=== PATIENT | male | born 1980 | race Caucasian/White ===

== ENCOUNTER 2022-07-07 11:07 | Outpatient (CLI) | payer OTHER, SELFPAY ==
--- NOTE | 2022-07-07 09:15 | DI.RAD_ITS ---
Exam(s) XR KNEE LT 3V AP,LAT,SHREE EXAM: XR KNEE LT 3V AP,LAT,SHREE CLINICAL HISTORY: left knee pain. TECHNIQUE: 2D digital imaging was performed of the left knee. Three images were obtained. Merchant ,AP and lateral views were obtained. COMPARISON: No exams were available for comparison FINDINGS: BONES: No acute fracture is present. No bony destructive lesion is seen. There is a tiny well cortic ated nonspecific ossified density superior to the medial tibial spine which appears old. JOINTS: The knee is normally aligned. No joint effusion is seen. SOFT TISSUE: Normal. IMPRESSION: No acute abnormality. DATA REPOSITORY: RADIATION DOSE DELIVERED:
== END 2022-07-07 11:08 | disposition home or self-care (01) ==
LOC: DIORS 11:08
PROVIDERS: Visit Provider Student in an Organized Health Care Education/Training Program
DX: M25.562 Pain in left knee (principal); M23.92 Unspecified internal derangement of left knee
CPT/HCPCS: 73562

== ENCOUNTER 2022-08-03 02:16 | Outpatient (CLI) | payer OTHER, SELFPAY ==
--- NOTE | 2022-08-03 07:45 | DI.MRI_ITS ---
Exam(s) MR LOWER JOINT LT WO EXAM: MR LOWER JOINT LT WO CLINICAL HISTORY: ? MENISCAL TEAR,internal derangement lt knee,m23.92 TECHNIQUE: Multiplanar multisequence MRI of the knee was performed. COMPARISON: CR XR KNEE LT 3V AP,LAT,SHREE from 07/07/2022 FINDINGS: EFFUSION: There is a moderate size knee joint effusion no Caraballo cyst. MARROW:There is no evidence of fracture, bone contusion, nor osteochondral defects.. There are no si gnificant osseous lesions. PATELLOFEMORAL COMPARTMENT: The quadriceps tendon is intact. The patellar ligament is intact. There is no significant thinning of the retropatellar cartilage. No evidence of fissure nor signific ant chondral defect. No osteochondral defect at this level.There is no intraosseous signal to sugges t recent patellar dislocation. There are no patellar retinacular tears. CRUCIATE LIGAMENTS: The anterior cruciate ligament is intact.The posterior cruciate ligament is intac t. MEDIAL COMPARTMENT/MEDIAL MENISCUS: There are no tears of the medial meniscus evident.. There are no chondral defects, osteochondral defects, subarticular marrow edema, nor osteophytes evid ent. MEDIAL COLLATERAL LIGAMENT: Intact LATERAL COMPARTMENT/LATERAL MENISCUS: There is some mild increased signal anterior to and in the ante rior horn but no true meniscal tear evident.There are no chondral defects, osteochondral defects, sub articular marrow edema, nor osteophytes evident. ILIOTIBIAL BAND: Intact LATERAL COLLATERAL LIGAMENT COMPLEX: The fibular collateral ligament is intact. The biceps femoris t endon is intact.Popliteus muscle and tendon are intact. IMPRESSION: 1. There is a moderate size joint effusion. However, and there is no obvious meniscal tear, cruciate ligament tear, nor collateral ligament tears. 2. No obvious loose intra-articular bodies. 3. No significant degenerative changes. No osteochondral defects. No subarticular edema and no dege nerative subarticular cysts. DATA REPOSITORY:
== END 2022-08-03 02:36 ==
LOC: DI 02:17
PROVIDERS: Visit Provider Student in an Organized Health Care Education/Training Program
DX: M25.462 Effusion, left knee
CPT/HCPCS: 73721

== ENCOUNTER 2022-12-16 11:11 | Day surgery (SDC) | payer OTHER, SELFPAY ==
[2022-12-16] VITALS (10 sets, daily range): BP systolic 118–148; BP diastolic 70–86; PULSE 61–80; RESP 13–20; TEMP 36.4–36.8; O2SAT 93–97; BMI 36.5
--- NOTE | 2022-12-16 11:51 | W.PM.DSUDISC ---
Date of service: 12/16/22 Time of Service: 14:00 Discharge Plan Disposition Patient Disposition: Home Discharge Details Attending Provider: Milo Sauceda Primary Care Provider: Lei Alvarado Home Meds and New Rx's Prescriptions: New naproxen 250 mg tablet 250 - 500 mg PO BID PRNQty: 40 0RF Rx Instructions: take with a meal aspirin 81 mg tablet,delayed release (DR/EC) 81 mg PO DAILY 14 Days Qty: 14 0RF Continued buprenorphine-naloxone 8-2 mg tablet, sublingual 2 tab sublingual DAILY acetaminophen [Tylenol] 325 mg capsule 325 mg PO ONCE PRN docusate sodium [Colace] 100 mg capsule 100 mg PO DAILY tamsulosin [Flomax] 0.4 mg Capsule 0.4 mg PO HS Discharge Instructions Additional Instructions: Surgery: Left knee arthroscopy with partial lateral meniscectomy and extensive synovectomy Activity: Weightbearing as tolerated. Advance range of motion as comfort allows. Elevate to minimize swelling and discomfort. Wiggle toes and perform ankle pumps to improve circulation and reduce risk of blood clot. Recommend avoiding sports, pivoting, and squatting for 6-8 weeks. A physical therapy prescription will be provided at follow-up. Prescriptions: Aspirin 81 mg take 1 daily to prevent a blood clot for 14 days Naproxen 250 mg take 1-2 every 12 hours with a meal as needed for moderate pain You may use [id number] Tylenol (acetaminophen) as needed for mild pain. These pain medications may be taken all at once or in different combinations as needed. Also, recommend Colace (docusate) as a stool softener as surgery and pain medicine cause constipation. You may try [id number] diphenhydramine (Benadryl) 25-50 mg nightly as a sleep aid Dressings: Leave dressing in place for 3 days. May then remove and leave open to air or cover incisions with Band-Aids. Leave the sticky Steri-Strips in place until they fall off or remove them after you shower. May shower after 5 days. Follow-up: 10-[address] Sauceda You may take off the leg compression stockings this evening at home. You may also leave them on a few days longer if you have a history of leg swelling or edema. Let us know right away if you develop any redness, drainage, fevers, chest pain, or trouble breathing. Do not drink alcohol or drive for at least 24 hours after anesthesia. Please call the office during business hours with any questions or concerns. Discharge Orders Discharge Orders: Discharge Order (Routine); Ordered 12/16/22 Ordered By: Milo Sauceda DS: Diagnosis Discharge Diagnosis (1) Plica syndrome, left knee: Status: Acute (2) Tear of lateral meniscus of left knee: Status: Acute
--- NOTE | 2022-12-16 11:52 | ROE_ITS ---
Date of service: 12/16/22 Time of Service: 13:00 Operative Note Operative Note DATE OF PROCEDURE: 12/16/22 PRE-OP DIAGNOSIS: Left knee 1. Plica and suprapatellar adhesions POST-OP DIAGNOSIS: same Left knee 1. Lateral meniscus tear 2. Synovitis including plical band and suprapatellar adhesions PROCEDURE: Left knee 1. Partial lateral meniscectomy, CPT #00812 2. Greater than 2 compartment synovectomy, CPT #75673: Including resection of suprapatellar adhesions, excision of medial gutter plica, debridement of medial, intercondylar, and lateral synovitis. SURGEON: Milo Sauceda GUEST SPECIALIST: None None ANESTHESIA TYPE: Local By Surgeon and General LMA/ETT Refer to Anesthesia Record ESTIMATED BLOOD LOSS: 5 PATHOLOGY: none sent TOURNIQUET TIME: 0 Patient was transported to: PACU Patient's condition: stable Indications: Please see complete medical record for details. Findings: Exam under anesthesia: Full range of motion, no instability Arthroscopic findings: Large and thickened suprapatellar adhesions, moderately large medial gutter plical band, central trochlear high-grade but small maybe 2 x 6 mm cartilage focal defect, mild undersurface patellar chondromalacia, intact medial compartment, intact ACL, mild to moderate lateral femoral condyle chondromalacia at the area corresponding to the lateral meniscus tear and more centrally to posteriorly. Displaced engaging anterior horn parrot-beak lateral meniscus tear. Remainder of lateral meniscus body posterior horn and root intact. Procedure Description: In the operating room, general anesthesia was induced. The patient was positioned supine on the operating room table. All bony prominences were well- padded. Preoperative antibiotics were administered. The knee was prepped and draped in the usual sterile fashion. The correct patient, procedure, and side of the procedure were all verified prior to incision. Exam under anesthesia was performed. 10 cc of 0.25% bupivacaine containing epinephrine was infiltrated about the planned anteromedial and anterolateral knee arthroscopy portals. The portals were established and a complete diagnostic arthroscopy was performed with relevant findings detailed above. The meniscal biters and mechanical shaver were used to resect suprapatellar adhesions and recreate the normal suprapatellar space. They were then used to remove the medial gutter plical band. Mechanical shaver was used to remove abundant inflamed synovium from the anterior medial, anterior lateral, and intercondylar areas. The anterior horn of the lateral meniscus had an obvious tear. Using a combination of hand instruments including meniscal biters and a power shaver and working through the anteromedial and anterolateral portals the meniscus was debrided of all torn tissue to a stable margin. Care was taken to preserve as much meniscus tissue was possible. The meniscal remnant was probed and found to have a stable margin, stable root, and no other tears Under direct arthroscopic visualization an 18-gauge needle was passed into the knee from superolateral into the suprapatellar pouch. The knee was copiously irrigated with arthroscopic fluid until there was a clear effluent before being drained of all fluid. The anteromedial and anterolateral portals were closed in 3-0 Monocryl in a buried interrupted fashion. 20 cc of 0.25% bupivacaine with epinephrine containing 4 mg of morphine was infiltrated into the knee through the previously placed needle. Mastisol, Steri-Strips, and 4 x 4 gauze were applied over the incisions followed by sterile soft roll. The knee was then wrapped gently with an ROSA comressive bandage. The patient awoke from anesthesia without complication and was transferred to the recovery room in a stable condition.
--- NOTE | 2022-12-16 11:58 | W.ANESPRE ---
General Info Date of Service Date Performed: 12/16/22 Height: 5 ft 11 in Weight: 118.841 kg Body Mass Index (BMI): 36.5 Surgical Procedure: Operation Date: 12/16/22 13:10 Proposed Procedure Side Surgeon p Knee Arthroscopy Left Milo Sauceda MD Meds Allergies and Home Medications Allergies Allergy/AdvReac Type Severity Reaction Status Date / Time No Known Allergies Allergy Verified 12/16/22 11:17 Home Medication Medication Instructions Recorded acetaminophen 325 mg capsule 325 mg PO ONCE PRN 07/07/22 (Tylenol) buprenorphine 8 mg-naloxone 2 mg 2 tab sublingual DAILY 07/07/22 sublingual tablet docusate sodium 100 mg capsule 100 mg PO DAILY 07/07/22 (Colace) tamsulosin 0.4 mg capsule (Flomax) 0.4 mg PO HS 12/15/22 naproxen 250 mg tablet 250 - 500 mg (1 - 2 x 250 mg) PO 12/16/22 BID PRN #40 tabs Current Visit Medications: Current Medications Generic Name Dose Route Start Last Admin Trade Name Freq PRN Reason Stop Dose Admin Ringer's Solution 1,000 mls @ 30 mls/hr 12/16/22 06:00 IV 01/14/23 23:59 INFUSION LIANET Cefazolin Sodium/Dextrose 2 gm in 50 mls @ 100 mls/hr 12/16/22 06:00 Ancef Duplex IVPB 12/16/22 16:00 PREOP LIANET IV Miscellaneous Supplies 1 each 12/16/22 06:00 Iv Access IV 01/14/23 23:59 DIRECTED LIANET Naproxen 250 - 500 mg 12/16/22 11:51 Naproxen 500 Mg Tab PO 01/15/23 11:50 BID PRN PRN Sodium Chloride 0 ml 12/16/22 06:00 Normal Saline Flush 10 Ml Syr IV 01/14/23 23:59 PRN PRN Sodium Chloride 0 ml 12/16/22 06:00 Normal Saline 10 Ml Vial IJ 01/14/23 23:59 DIRECTED PRN Sterile Water 0 ml 12/16/22 06:00 Water,Injection,Sterile 10 Ml Vial IJ 01/14/23 23:59 DIRECTED PRN PFSH Active Problems Active Problems: Problem Status Onset Code Plica syndrome, left knee M67.52 Effusion, left knee M25.462 Internal derangement of left knee ~01/2022 M23.92 Medical History Medical History Hx of drug abuse Surgical History Surgical History History of open reduction and internal fixation (ORIF) procedure Left wrist with 3 pins. Tobacco Smoking/Tobacco Use Status: Unknown Alcohol Alcohol Intake: former Substance Use Substance use: Current Sobriety Vital Signs and Lab Results Vital Signs Most Recent Vital Signs in EMR: Most Recent Vital Signs Temp Pulse Resp BP Pulse Ox 36.4 C L 61 18 118/81 96 12/16/22 11:22 12/16/22 11:22 12/16/22 11:22 12/16/22 11:22 12/16/22 11:22 Lab Results Blood Type / Crossmatch: No Data to Display Complete Blood Count: No Data to Display Complete Metabolic Panel: No Data to Display Liver Function Panel: No Data to Display Coagulation Panel: No Data to Display Cardiac Panel: No Data to Display Arterial Blood Gas: No Data to Display Venous Blood Gas: No Data to Display Pancreas Panel: No Data to Display Thyroid Panel: No Data to Display Infectious Disease: No Data to Display Blood Cultures: No Data to Display Toxicology Panel: No Data to Display Anesthesia Assessment and Plan Anesthesia History Personal History: No History of Anesthesia Complications Family History: No Family History of Anesthesia Complications Exercise Tolerance Exercise Tolerance: Metabolic Equivalents>4 Pertinent Negatives Pertinent Negatives: No Symptoms of GERD, No Major Cardiovascular Symptoms or Complaints and No Major Pulmonary Symptoms or Complaints Cardiac & Pulmonary Exam Cardiac Exam: Normal S1/S2 Heart Sounds Pulmonary Exam: Clear Bilateral Breath Sounds Implantable Cardiac Device Does patient have a Pacemaker or an ICD?: No Airway Exam Known Difficult Airway: No Mallampati Class: 2 Mouth Opening: Normal (> 3cm) Thyromental Distance: Greater than 3 cm Neck Range of Motion: Full ROM Neck Circumference: Normal Teeth Condition: Normal Dentition ASA Classification ASA Score: ASA 2 Emergency Case?: No NPO Status NPO Status: NPO Clears >2 hours, Solids >8 hours Anesthesia Plan Resuscitation Status: Full Code Anesthesia Technique: General Anesthesia Airway Planned: LMA Monitors Used: Standard Monitors
[2022-12-16] MEDS: Lactated Ringers 1,000 ML 30 ML IV (12:50)
[2022-12-16] MEDS: ceFAZolin 2 GM/50 ML BAG IVPB (13:04)
[2022-12-16] MEDS: Normal Saline 100 ML 600 ML (13:27)
[2022-12-16] MEDS: Tranexamic Acid 1,000 MG/10 ML VIAL 1000 MG (13:27)
[2022-12-16] MEDS: Bupivacaine 0.25% Pres-Free 30 ML VIAL (13:36)
[2022-12-16] MEDS: EPINEPHrine 10 MG/10 ML ML (13:37)
--- NOTE | 2022-12-16 15:57 | W.ANESPOSTOP ---
Postoperative Evaluation Date, Time and Location Date Performed: 12/16/22 Time Performed: 15:57 Patient Location: Day Surgery Unit Vital Signs Most Recent Imported Vital Signs: Most Recent Vital Signs Temp Pulse Resp BP Pulse Ox 36.6 C 74 16 123/73 93 12/16/22 15:54 12/16/22 15:54 12/16/22 15:54 12/16/22 15:54 12/16/22 15:54 Pain Score Most Recent Pain Score: Most Recent Pain Score Pain Level 4 12/16/22 15:54 Assessment Mental Status: Awake (Alert & Oriented to Patient Baseline) Airway and Respiratory Function: Patent airway with normal (patient baseline) respiratory exam Cardiovascular Function: Hemodynamically Stable Hydration Status: Adequately Hydrated Nausea & Vomiting: No Nausea or Vomiting Pain: Pain is tolerable per patient Peripheral Nerve Block: Patient did not receive a nerve block
== END 2022-12-16 11:12 | disposition home or self-care (01) ==
PROVIDERS: Visit Provider Student in an Organized Health Care Education/Training Program
PROC: (CPT 29870; principal; 2022-12-16 13:00)
DX: M67.52 Plica syndrome, left knee (principal); S83.282A Other tear of lateral meniscus, current injury, left knee, initial encounter; X58.XXXA Exposure to other specified factors, initial encounter
CPT/HCPCS: 29876; 29881; 00123; J0690; J1100; J2250; J2270; J2405; J2704